=== PATIENT | female | born 1965 | race Caucasian/White ===

== ENCOUNTER 2024-10-18 05:42 | Emergency (ER) | payer SELFPAY ==
[2024-10-18 05:44] VITALS: PULSE 89; RESP 22; TEMP 35.8; O2SAT 100
[2024-10-18 05:48] VITALS: BP 119/73; RESP 18; O2SAT 99
--- NOTE | 2024-10-18 05:48 | ED.GENADUL_ITS ---
Discharge Plan Disposition Condition: Improving Condition: Improving Discharge Details Chief Complaint: Abd Prob Clinical Impression: Nausea, vomiting and diarrhea Primary Care Provider: None,None ED Provider: Levi Prices and New Rx's Prescriptions: New Ondansetron Odt, 3 Tabs/Btl [Zofran Odt, 3 Tabs/Btl] 4 mg PO DISPENSE Qty: 0 0RF Discharge Instructions Instructions: Nausea and vomiting in adults Additional Instructions: You were seen in the ED for vomiting and diarrhea with generalized abdominal pain. You improved with fluids and medications and your exam, vital signs, laboratory studies are all reassuring. We will send you home with a few tablets of Zofran for recurrent nausea vomiting. Recommend rest and clear liquid diet today. Advance diet slowly as tolerated. Follow-up with primary care end of week if not improving. Return to ED for new or worsening pain, persistent vomiting, high fever, bloody diarrhea, other concerns. HPI General Mode of arrival: ambulatory . Date/Time Provider Initiated Documentation: 10/18/24 05:48 . Limitations to Documentation: no limitations . Information obtained by: patient and RN notes reviewed . HPI Narrative: Patient presents to ED with onset of vomiting, diarrhea, diffuse abdominal pain last night around midnight. Symptoms continue through to this morning. No fever that she is aware of. No radiation of pain into the chest or back. No urinary symptoms. Pain is not localized to any 1 particular area in the abdomen. Denies any previous abdominal surgeries. Denies any significant medical history. Appears uncomfortable. Related Data Home Medications ?Medication ?Instructions ?Recorded ?Confirmed Ondansetron ODT, 3 tabs/btl 4 mg PO DISPENSE ##0 10/18 [Zofran ODT, 3 tabs/btl] Previous Rx's ?Medication ?Instructions ?Recorded Ondansetron ODT, 3 tabs/btl 4 mg PO DISPENSE ##0 10/18 [Zofran ODT, 3 tabs/btl] Allergies Allergy/AdvReac Type Severity Reaction Status Date / Time No Known Allergies Allergy Unverified 10/18/24 05:47 General Stated Complaint: Abd Prob LUCITA: 3 Exam Narrative Exam Narrative: Const: WDWN female in NAD, but does appear uncomfortable. VS per triage. HEENT: NC/AT. Normal facial exam. Neck: Supple. Trachea midline. Lungs: Normal respiratory effort. Lungs are clear. Cor: RRR without murmur. Good radial pulses. GI: Soft/ND/NT. Neuro: A+O x 3. Normal speech, mentation, gait. Cranial nerves II - XII grossly intact. No gross motor or sensory deficit. Ext: No C/C/E. Course Vital Signs Vital signs: Vital Signs Temperature 96.5 F L 10/18/24 05:44 Pulse 89 10/18/24 05:44 Respiratory Rate 22 10/18/24 05:44 Pulse Oximetry 100 10/18/24 05:44 Temperature 96.5 F L 10/18/24 05:44 Temperature Source Tympanic 10/18/24 05:44 Pulse 89 10/18/24 05:44 Respiratory Rate 22 10/18/24 05:44 Blood Pressure Position Sitting 10/18/24 05:44 Pulse Oximetry 100 10/18/24 05:44 Oxygen Delivery Method Room Air 10/18/24 05:44 Oxygen Flow Rate 0 10/18/24 05:44 Medical Decision Making Patient presenting to ED with diffuse abdominal pain and pressure, vomiting and diarrhea. She is not febrile here. She is not tender anywhere throughout her abdomen. No previous abdominal surgeries. Suspect probable gastroenteritis. Lack of any focal tenderness suggest against surgical problem. Will place IV, give fluids and medications, send laboratory studies and reevaluate. Patient definitely feeling better though still has nausea. Will dose with prochlorperazine and finish her fluids. Laboratory studies are reassuring with a normal white count, liver function, lipase. Mildly low potassium at 3.4 and glucose at 155. Repeat abdominal exam remains benign. Will plan to discharge home after fluids with a few Zofran for recurrent nausea vomiting. Resting clear liquid diet today. Advance as tolerated. Follow-up with primary care in the week if not doing better. Return precautions provided. Lab Data Lab results reviewed: Yes I reviewed the patient's lab results. Lab results narrative: see [facility] All Active Problems (Updated 10/18/24 @ 07:00 by Levi Price MD) Nausea, vomiting and diarrhea (Acute) Medical History No significant past medical history Surgical History No significant past surgical history Social History Smoking/Tobacco Use Status: Never Smoking risk assessment performed?: Yes Alcohol Intake: never
[2024-10-18] MEDS: Normal Saline 1,000 ML 1000 ML IV (06:06)
[2024-10-18] MEDS: Ketorolac 15 MG/ML VIAL IVP (06:07)
[2024-10-18] MEDS: Ondansetron 4 MG/2 ML VIAL IVP (06:07)
[2024-10-18 06:10] LABS: Abs Immature Grans 0.02 10^3/uL (0.0-0.06); HCT 38.9 % (36.0-46.0); HGB 13.0 g/dL (11.2-15.7); Immature Grans % 0.2 %; MCH 28.8 pg (27.0-33.0); MCHC 33.4 % (32.0-36.0); MCV 86 fL (80-95); MPV 8.8 fL (8.0-11.0); Platelet Count 238 10^3/uL (130-400); RBC 4.51 10^6/uL (3.93-5.22); RDW 12.2 % (11.7-14.6); RDW-SD 38.6 fL; WBC 8.11 10^3/uL (4.4-10.8)
[2024-10-18 06:29] LABS: ALT 27 U/L (14-59); AST 16 U/L (15-37); Albumin 4.2 g/dL (3.4-5.0); Alkaline Phosphatase 51 U/L (46-116); Anion Gap 11.7 mmol/L (3-11); BUN 10 mg/dL (7-18); Bilirubin, Total 0.5 mg/dL (0.2-1.0); CO2 24.3 mmol/L (21.0-32.0); Calcium 9.2 mg/dL (8.5-10.1); Chloride 103 mmol/L (98-107); Estimated GFR 103.98 (mL/min/1.73m2); Glucose 155 mg/dL (74-106); Lipase 21 U/L (<78); Potassium 3.4 mmol/L (3.5-5.1); Sodium 139 mmol/L (136-145); Total Protein 7.3 g/dL (6.4-8.2)
[2024-10-18 07:19] VITALS: BP 118/80; PULSE 80; RESP 16; O2SAT 98
[2024-10-18] MEDS: Prochlorperazine 10 MG/2 ML VIAL 5 MG IVP (07:23)
--- NOTE | 2024-10-18 07:27 | ED.PROG_ITS ---
Date of service: 10/18/24 Time of Service: 07:27 Medical Decision Making This patient was in the emergency department at the start of my shift. She is pending discharge. I ordered Compazine for the patient per request from her original provider. She had had nausea vomiting and abdominal pain. Will reassess following her Compazine dose. 7:45 AM I met with the patient. She was feeling improved. We discussed that she should return for any abdominal pain recurrent nausea or vomiting. Otherwise advised P CP follow-up. She understood her return indications and was discharged with empiric trial of outpatient expectant management. Discharge Plan Disposition Patient Disposition: Home Condition: Improving Discharge Details Clinical Impression: Nausea, vomiting and diarrhea Primary Care Provider: None,None ED Provider: [facility] Prescriptions: New Ondansetron Odt, 3 Tabs/Btl [Zofran Odt, 3 Tabs/Btl] 4 mg PO DISPENSE Qty: 0 0RF Discharge Instructions Instructions: Nausea and vomiting in adults Additional Instructions: You were seen in the ED for vomiting and diarrhea with generalized abdominal pain. You improved with fluids and medications and your exam, vital signs, laboratory studies are all reassuring. We will send you home with a few tablets of Zofran for recurrent nausea vomiting. Recommend rest and clear liquid diet today. Advance diet slowly as tolerated. Follow-up with primary care end of week if not improving. Return to ED for new or worsening pain, persistent vomiting, high fever, bloody diarrhea, other concerns.
[2024-10-18] MEDS: Ondansetron O.D.T. 4 MG TABEF, 3 TABS/BTL PO (07:53)
== END 2024-10-18 08:31 | disposition home or self-care (01) ==
PROVIDERS: Emergency Provider Emergency Medicine
DX: R11.2 Nausea with vomiting, unspecified (principal); R19.7 Diarrhea, unspecified
CPT/HCPCS: 00123; 80053; 83690; 96374; 96375; 99284; 85025; J0780; J1885; J2405